=== PATIENT | male | born 1970 | race African-American/Black ===

== ENCOUNTER 2021-04-05 05:53 | Inpatient (IN) | payer OTHER ==
[2021-04-02 10:39] VITALS: BMI 38.2
[2021-04-05] MEDS ORDERED: PHENYLEPHRINE-NS 100 MCG/ML 10 ML SYRINGE ONE (07:18)
[2021-04-05] MEDS ORDERED: Lidocaine 1% PF 5 ML VIAL ONE (07:18)
[2021-04-05] MEDS ORDERED: Glycopyrrolate 0.2 MG/ML 5 ML SYRINGE ONE (07:18)
[2021-04-05] MEDS ORDERED: PROPOFOL 200 MG/20 ML VIAL ONE (07:18)
[2021-04-05] MEDS ORDERED: ePHEDrine Sulfate 50 MG/10 ML VIAL ONE (07:18)
[2021-04-05] MEDS ORDERED: Ondansetron PF 4 MG/2 ML Vial ONE (07:18)
[2021-04-05] MEDS ORDERED: Dexamethasone 20 MG/5 ML VIAL ONE (07:18)
[2021-04-05] MEDS ORDERED: Rocuronium Bromide 10 MG/ML (10ML VIAL) ONE (07:18)
[2021-04-05] MEDS ORDERED: Midazolam HCl 2 mg/2 ml Vial ONE (07:53)
[2021-04-05] MEDS ORDERED: HYDROmorphone 2 MG/ML VIAL ONE ×2 (07:54→09:08)
[2021-04-05] MEDS ORDERED: Fentanyl 100 MCG/2 ML VIAL ONE ×3 (09:01→10:36)
[2021-04-05] MEDS ORDERED: Meperidine HCl/PF 25 MG/ML VIAL ONE (09:07)
[2021-04-05] MEDS ORDERED: Ketorolac Tromethamine 30 MG/ML VIAL ONE (09:23)
[2021-04-05] MEDS ORDERED: tiZANidine HCl 4 MG TAB ONE (10:38)
[2021-04-05] MEDS ORDERED: Fentanyl 250 MCG/5 ML VIAL ONE (10:52)
[2021-04-05] MEDS ORDERED: Tamsulosin HCl 0.4 MG CAP ONE (11:31)
[2021-04-05] MEDS ORDERED: Ondansetron PF 4 MG/2 ML Vial IM PRN (11:45)
[2021-04-05] MEDS ORDERED: Mag-Al 1200 mg/1200 mg/30 ML UDCUP PO PRN (11:45)
[2021-04-05] MEDS ORDERED: Promethazine HCl 12.5 MG SUPP PR PRN (11:45)
[2021-04-05] MEDS ORDERED: diphenhydrAMINE 50 MG/ML VIAL IVP PRN (11:45)
[2021-04-05] MEDS ORDERED: HYDROcodone/Acetaminophen 10/325 mg Tablet PO PRN (11:45)
[2021-04-05] MEDS ORDERED: Promethazine 25 MG TAB PO PRN (11:45)
[2021-04-05] MEDS ORDERED: traMADol HCl 50 MG TAB PO PRN ×2 (11:45)
[2021-04-05] MEDS ORDERED: Milk Of Magnesia 30 ML UDCUP PO PRN (11:45)
[2021-04-05] MEDS ORDERED: Meperidine HCl/PF 25 MG/ML VIAL SLOW IVP PRN (11:45)
[2021-04-05] MEDS ORDERED: Promethazine HCl 25 MG/ML VIAL IM PRN (11:45)
[2021-04-05] MEDS ORDERED: diphenhydrAMINE 25 MG CAP PO PRN (11:45)
[2021-04-05] MEDS: Sodium Chloride 0.9% 1,000 ML IV SCH ×2 (12:43→17:44)
[2021-04-05] MEDS: HYDROcodone/Acetaminophen 10/325 mg Tablet PO PRN ×2 (12:57→19:49)
[2021-04-05] MEDS: CEFAZOLIN 2 GM in Premix Bag 1 BAG IVPB SCH ×2 (14:24→22:53)
[2021-04-05] MEDS: tiZANidine HCl 4 MG TAB PO PRN (17:44)
[2021-04-06] MEDS: HYDROcodone/Acetaminophen 10/325 mg Tablet PO PRN (00:12)
[2021-04-06] MEDS: tiZANidine HCl 4 MG TAB PO PRN (00:12)
[2021-04-06] MEDS: Tamsulosin HCl 0.4 MG CAP PO SCH (06:25)
[2021-04-06] MEDS: oxyCODONE/Acetaminophen 5 mg/325 mg Tablet PO PRN ×3 (08:45→23:01)
[2021-04-06] MEDS: Diazepam 5 MG TAB PO PRN (08:45)
[2021-04-06] MEDS: Sodium Chloride 0.9% 1,000 ML IV SCH (15:24)
[2021-04-06] MEDS: Dexamethasone 4 mg/ml Vial SLOW IVP SCH ×2 (16:54→23:02)
[2021-04-06] MEDS: Ketorolac Tromethamine 30 MG/ML VIAL IVP SCH (20:35)
[2021-04-06] MEDS: Famotidine 20 MG TAB PO SCH (21:06)
[2021-04-07] MEDS: Sodium Chloride 0.9% 1,000 ML IV SCH (05:44)
[2021-04-07] MEDS: Tamsulosin HCl 0.4 MG CAP PO SCH (06:16)
[2021-04-07] MEDS: oxyCODONE/Acetaminophen 5 mg/325 mg Tablet PO PRN ×3 (06:17→23:06)
[2021-04-07] MEDS: Famotidine 20 MG TAB PO SCH ×2 (08:48→20:45)
[2021-04-07] MEDS: Dexamethasone 4 mg/ml Vial SLOW IVP SCH ×3 (08:48→23:06)
[2021-04-07] MEDS: Ketorolac Tromethamine 30 MG/ML VIAL IVP SCH ×2 (08:48→20:45)
[2021-04-08] MEDS: Tamsulosin HCl 0.4 MG CAP PO SCH (05:21)
[2021-04-08] MEDS: Diazepam 5 MG TAB PO PRN (08:21)
[2021-04-08] MEDS: Famotidine 20 MG TAB PO SCH (08:22)
[2021-04-08] MEDS: Ketorolac Tromethamine 30 MG/ML VIAL IVP SCH (08:22)
[2021-04-08] MEDS: Dexamethasone 4 mg/ml Vial SLOW IVP SCH (08:22)
[2021-04-08] MEDS: oxyCODONE/Acetaminophen 5 mg/325 mg Tablet PO PRN (13:04)
[2021-04-08 15:38] VITALS: BP 142/82; TEMP 97.9
[2021-04-08] MEDS ORDERED: Dexamethasone 4 mg/ml Vial SLOW IVP SCH (16:00)
== END 2021-04-08 19:30 | disposition home or self-care (01) | DRG 455 ==
LOC: SDC 05:53 → SJJU 11:23 → OBSVTOIN 04-07 08:32
PROVIDERS: ADMIT Neurological Surgery; ATTEND Neurological Surgery
PROC: 0SG00A0 Fusion of Lumbar Vertebral Joint with Interbody Fusion Device, Anterior Approach, Anterior Column, Open Approach (ICD-10-PCS; principal; 2021-04-05)
PROC: 0SG0071 Fusion of Lumbar Vertebral Joint with Autologous Tissue Substitute, Posterior Approach, Posterior Column, Open Approach (ICD-10-PCS; 2021-04-05)
PROC: 0SB20ZZ Excision of Lumbar Vertebral Disc, Open Approach (ICD-10-PCS; 2021-04-05)
PROC: 01NB0ZZ Release Lumbar Nerve, Open Approach (ICD-10-PCS; 2021-04-05)
DX: M54.16 Radiculopathy, lumbar region (principal); E66.9 Obesity, unspecified; F41.9 Anxiety disorder, unspecified; M48.061 Spinal stenosis, lumbar region without neurogenic claudication; Z68.38 Body mass index [BMI] 38.0-38.9, adult; Z20.822 Contact with and (suspected) exposure to COVID-19
CPT/HCPCS: 76000; 96365; 96366; 96375; 96376; C1768; G0378; J0690; J1100; J1170; J1885; J2175; J2250; J2405; J2704; J3010; J3370

== ENCOUNTER 2021-04-26 09:00 | Outpatient (CLI) | payer OTHER | END 2021-04-26 09:01 | disposition home or self-care (01) | LOC: TBSIIMAG 09:00 | PROVIDERS: ATTEND Physician Assistant | DX: M47.26 Other spondylosis with radiculopathy, lumbar region (principal); Z98.890 Other specified postprocedural states | CPT/HCPCS: 72100 ==

== ENCOUNTER 2021-06-14 10:25 | Outpatient (CLI) | payer OTHER | END 2021-06-14 10:26 | disposition home or self-care (01) | LOC: TBSIIMAG 10:25 | PROVIDERS: ATTEND Neurological Surgery | DX: M47.26 Other spondylosis with radiculopathy, lumbar region (principal) | CPT/HCPCS: 72100 ==

== ENCOUNTER 2021-09-02 08:12 | Outpatient (CLI) | payer OTHER | END 2021-09-02 08:13 | disposition home or self-care (01) | LOC: TBSIIMAG 08:12 | PROVIDERS: ATTEND Neurological Surgery | DX: M54.16 Radiculopathy, lumbar region (principal); Z98.890 Other specified postprocedural states | CPT/HCPCS: 72100 ==

== ENCOUNTER 2021-10-27 13:16 | Outpatient (CLI) | payer OTHER ==
[2021-10-28 11:15] LABS: SARS-CoV-2 PCR by NAA Not Detected (NotDetected)
== END 2021-10-27 13:17 | disposition home or self-care (01) ==
LOC: LABBT 13:16
PROVIDERS: ATTEND Neurological Surgery
DX: Z01.812 Encounter for preprocedural laboratory examination (principal); M51.36 Other intervertebral disc degeneration, lumbar region; Z20.822 Contact with and (suspected) exposure to COVID-19
CPT/HCPCS: U0003; U0005

== ENCOUNTER 2021-11-01 11:07 | Day surgery (SDC) | payer OTHER ==
[2021-10-27 11:15] VITALS: BMI 38.2
== END 2021-11-01 14:35 | disposition home or self-care (01) ==
LOC: CT 11:07
PROVIDERS: ATTEND Neurological Surgery
PROC: B02B1ZZ Computerized Tomography (CT Scan) of Spinal Cord using Low Osmolar Contrast (ICD-10-PCS; principal; 2021-11-01)
DX: M51.36 Other intervertebral disc degeneration, lumbar region (principal); M25.78 Osteophyte, vertebrae; E66.9 Obesity, unspecified; Z68.38 Body mass index [BMI] 38.0-38.9, adult; Z88.5 Allergy status to narcotic agent; Z98.1 Arthrodesis status
CPT/HCPCS: 62304; 72132

== ENCOUNTER 2021-12-22 10:29 | Outpatient (CLI) | payer OTHER ==
[2021-12-22 12:48] LABS: Hemoglobin 15.3 g/dL (13.5-17.5); Mean Corpuscular HGB CONC 33.6 g/dL (32.0-36.0); Mean Corpuscular Hemoglobin 31.3 pg (27.0-33.0); Platelet Count 163 10x3/uL (150-450); RBC Distribution Width 13.1 % (11.5-14.5); Red Blood Cell (RBC) Count 4.89 10x6/uL (4.32-5.72); White Blood Cell (WBC) Count 7.8 10x3/uL (3.5-10.5)
[2021-12-22 13:08] LABS: Anion Gap 15 mmol/L (10-20); BUN (Urea Nitrogen) 16 mg/dL (8.9-20.6); Calc. Creatinine Clearance 0 mL/min (70-130); Carbon Dioxide 25 mmol/L (22-29); Chloride 107 mmol/L (98-107); Glucose 100 mg/dL (70-105); Potassium 4.5 mmol/L (3.5-5.1); Sodium 142 mmol/L (136-145)
[2021-12-22 22:21] LABS: SARS-CoV-2 PCR by NAA Not Detected (NotDetected)
== END 2021-12-22 10:30 | disposition home or self-care (01) ==
LOC: LABBT 10:29
PROVIDERS: ATTEND Neurological Surgery
DX: Z01.818 Encounter for other preprocedural examination (principal); M54.16 Radiculopathy, lumbar region; Z20.822 Contact with and (suspected) exposure to COVID-19
CPT/HCPCS: 80048; 85027; 93005; 93010; U0003; U0005

== ENCOUNTER 2022-01-19 12:09 | Outpatient (CLI) | payer OTHER | END 2022-01-19 12:10 | disposition home or self-care (01) | LOC: TBSIIMAG 12:09 | PROVIDERS: ATTEND Neurological Surgery | DX: M54.16 Radiculopathy, lumbar region (principal); Z98.890 Other specified postprocedural states | CPT/HCPCS: 72100 ==

== ENCOUNTER 2022-03-11 13:08 | Outpatient (CLI) | payer OTHER | END 2022-03-11 13:09 | disposition home or self-care (01) | LOC: TBSIIMAG 13:08 | PROVIDERS: ATTEND Physician Assistant | DX: T84.498A Other mechanical complication of other internal orthopedic devices, implants and grafts, initial encounter (principal); M54.50 Low back pain, unspecified | CPT/HCPCS: 72100 ==